=== PATIENT | female | born 1995 | race Caucasian/White ===

== ENCOUNTER 2019-03-21 08:30 | Emergency (ER) | payer MEDICAID ==
[~2019-03-21] VITALS: Ht 170.2 cm; Wt 125.2 kg
[2019-03-21 08:34] VITALS: BP 135/98
--- NOTE | 2019-03-21 08:36 | NUR ---
PT MAB TO BED 6 WITH STEADY GAIT
--- NOTE | 2019-03-21 08:52 | NUR ---
23F C/O FREQUENCY, URGENCY, DYSURIA AND LEFT SIDED LOWER BACK PAIN X 1 WEEK. PAIN 8/10 WITH URINATION. STATES SHE FELT WARM YESTERDAY BUT DID NOT TAKE TEMPERATURE. STATES CHILLS 2 DAYS AGO. NAD. PMH- DENIES
--- NOTE | 2019-03-21 08:55 | NUR ---
Patient being evaluated by physician at bedside.
[2019-03-21 09:32] LABS: APPEARANCE,URINE CLEAR (CLEAR); BILIRUBIN,URINE NEGATIVE (NEGATIVE); BLOOD, URINE TRACE-I (NEGATIVE); COLOR,URINE YELLOW (YELLOW); LEUKOCYTE ESTERASE ,URINE TRACE (NEGATIVE); NITRITE, URINE NEGATIVE (NEGATIVE); UGLUCOSE NEGATIVE (NEGATIVE)
[2019-03-21 09:41] LABS: RBC,URINE 0-5 /HPF (0-5)
--- NOTE | 2019-03-21 10:38 | NUR ---
Patient discharged with v/s stable. Written and verbal after care instructions given and explained. Patient alert, oriented and verbalized understanding of instructions. Ambulatory with steady gait. All questions addressed prior to discharge. ID band removed. Patient advised to follow up with PMD. Rx of KEFLEX AND PYRIDIUM given. Patient educated on indication of medication including possible reaction and side effects. Opportunity to ask questions provided and answered.
[2019-03-21 10:39] VITALS: BP 112/78
== END 2019-03-21 10:38 | disposition home or self-care (01) ==
LOC: MED 08:30
DX: N39.0 Urinary tract infection, site not specified (principal)
CPT/HCPCS: 81001; 81025; 87086; 99283